=== PATIENT | male | born 1970 | race Caucasian/White ===

== ENCOUNTER 2016-10-19 19:06 | Emergency (ER) | payer OTHER, MEDICAID ==
--- NOTE | 2016-10-19 19:06 | EDPHY ---
H & P Time Seen by Provider: 10/19/16 19:06 HPI/ROS: CHIEF COMPLAINT: Alcohol intoxication, "I had a seizure." HISTORY OF PRESENT ILLNESS: This patient is an intoxicated 33 year old male well known to this facility who arrives by EMS after he was found outside of a bar diffusely trembling. He tells me that he was told he had a seizure. He states that he doesn't know when he last drank alcohol and denies alcohol use today. He admits to a history of seizures and reports that he has been compliant with his seizure medications; he takes Dilantin 300mg in the morning and 200mg in the evening. He has no complaints upon arrival. He denies any recent illness. The patient is reluctant to provide detailed history secondary to his intoxicated state. REVIEW OF SYSTEMS: Constitutional: No fever, no chills Eyes: No visual changes ENT: No sore throat Respiratory: No cough, no shortness of breath Cardiac: No chest pain Gastrointestinal: No nausea, no vomiting, no abdominal pain Genitourinary: No hematuria, no dysuria Musculoskeletal: No leg pain or swelling Skin: No rash Neurological: No headache, no numbness, no weakness Psychiatric: No depression Past Medical/Surgical History: Alcoholism Seizure disorder Social History: Heavy drinker. Smoker. Smoking Status: Heavy smoker Physical Exam: General Appearance: Alert, appears intoxicated Eyes: Pupils equal and round, no conjunctival pallor or injection ENT, Mouth: Mucous membranes moist Neck: Normal inspection Respiratory: Lungs are clear to auscultation Cardiovascular: Regular rate and rhythm Gastrointestinal: Abdomen is soft and non- tender Neurological: A&O, nonfocal, not confused Skin: Warm and dry Extremities: Nontender, no pedal edema Psychiatric: Mood and affect normal Constitutional: Initial Vital Signs Temperature (C) 37.0 C 10/19/16 19:13 Heart Rate 84 10/19/16 19:13 Respiratory Rate 20 10/19/16 19:13 Blood Pressure 110/64 10/19/16 19:13 O2 Sat (%) 96 10/19/16 19:13 O2 Delivery Mode Room Air Allergies/Adverse Reactions: ISOVUE-300 Allergy (Uncoded 10/19/16 19:13) Home Medications: Medication Instructions Recorded clonazePAM [klonoPIN (RX)] 12/25/13 Medical Decision Making ED Course/Re-evaluation: Will administer the patient's evening dose of 200mg Dilantin. Breathalyzer reveals ETOH level of 382. 8 p.m.-Able to walk with a steady gait. Will discharge to the [facility]. - Data Points Medications Given: Discontinued Medications Phenytoin (Dilantin) 200 mg PO EDNOW ONE Stop: 10/19/16 19:25 Last Admin: 10/19/16 20:06 Dose: Not Given Phenytoin (Dilantin) 200 mg PO ONCE ONE Stop: 10/19/16 20:01 Last Admin: 10/19/16 20:09 Dose: 200 mg Departure - Departure Disposition: Home, Routine, Self-Care Clinical Impression: Alcohol intoxication Qualifiers: Complication of substance-induced condition: uncomplicated Qualified Code(s): F10.120 - Alcohol abuse with intoxication, uncomplicated Condition: Good Instructions: Abuse of Alcohol (ED) Additional Instructions: 1. Please avoid abusing alcohol. If you would like to detox from alcohol, please go to the [facility] ([facility] 2. Return to the Emergency Department if you experience repeat seizures, severe headache, confusion, or others serious concerns. Referrals: Erna Pandya MD [Primary Care Provider] - As per Instructions [facility] Detox 24 Hours [Outside] - As per Instructions Report Scribed for: Monique Hooper Report Scribed by: Rekha Martin Date of Report: 10/19/16 Time of Report: 19:06 Physician Review and Approval Statement: 10/19/16 19:06 Portions of this note were transcribed by a medical scientific officer. I personally performed a history, physical exam, medical decision making, and confirmed accuracy of information the transcribed note.
[2016-10-19 19:15] VITALS: TEMP 98.6; O2SAT 96
[2016-10-19] MEDS ORDERED: PHENYTOIN 100 MG/4 ML UDL PO ONE (19:24)
[2016-10-19] MEDS ORDERED: PHENYTOIN 50 MG CHEWABLE TAB PO ONE (20:00)
[2016-10-19 20:10] VITALS: BP 100/67; PULSE 85; RESP 18
== END 2016-10-19 20:31 | disposition home or self-care (01) ==
LOC: EDUNIT#
DX: F10.120 Alcohol abuse with intoxication, uncomplicated (principal); F17.200 Nicotine dependence, unspecified, uncomplicated

== ENCOUNTER 2016-11-26 02:29 | Emergency (ER) | payer OTHER, MEDICAID ==
[2016-11-26 02:41] VITALS: TEMP 97.3
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
[2016-11-26 06:19] VITALS: BP 110/68; PULSE 86; RESP 15; O2SAT 94
== END 2016-11-26 06:27 | disposition home or self-care (01) ==
DX: F10.121 Alcohol abuse with intoxication delirium (principal); I10 Essential (primary) hypertension; F17.200 Nicotine dependence, unspecified, uncomplicated

== ENCOUNTER 2016-12-07 01:37 | Emergency (ER) | payer OTHER, MEDICAID ==
--- NOTE | 2016-12-07 01:45 | EDPHY ---
H & P HPI/ROS: CHIEF COMPLAINT: Alcohol intoxication HISTORY OF PRESENT ILLNESS: Patient is a 46-year-old alcoholic well known to our department. He was found outside of the bar tonight passed out. States that he had been sober for 6 months but fell off the [facility]. He reports a history of seizure disorder although this has been question in the previous medical records. He denies any seizure-like activity tonight. He is not currently taking antiepileptics. He denies any injury or illness. He is unable to ambulate without assistance. REVIEW OF SYSTEMS: Constitutional: denies: chills, fever, recent illness, recent injury EENTM: denies: blurred vision, double vision, nose congestion Respiratory: denies: cough, shortness of breath Cardiac: denies: chest pain, irregular heart rate, lightheadedness, palpitations Gastrointestinal/Abdominal: denies: abdominal pain, diarrhea, nausea, vomiting, blood streaked stools Genitourinary: denies: dysuria, frequency, hematuria, pain Musculoskeletal: Chronic shoulder pain Skin: denies: lesions, rash, jaundice, bruising Neurological: denies: headache, numbness, paresthesia, tingling, dizziness, weakness Hematologic/Lymphatic: denies: blood clots, easy bleeding, easy bruising Immunologic/allergic: denies: HIV/AIDS, transplant EXAM: GENERAL: Slurred speech, unstable gait HEAD: Atraumatic, normocephalic. EYES: Pupils equal round and reactive to light, extraocular movements intact, sclera anicteric, conjunctiva are normal. ENT: TMs normal, nares patent, oropharynx clear without exudates. Moist mucous membranes. NECK: Normal range of motion, supple without lymphadenopathy or JVD. LUNGS: Breath sounds clear to auscultation bilaterally and equal. No wheezes rales or rhonchi. HEART: Regular rate and rhythm without murmurs, rubs or gallops. ABDOMEN: Soft, nontender, normoactive bowel sounds. No guarding, no rebound. No masses appreciated. BACK: No CVA tenderness, no spinal tenderness, step-offs or deformities EXTREMITIES: Normal range of motion, no pitting or edema. No clubbing or cyanosis. NEUROLOGICAL: Cranial nerves II through XII grossly intact. Normal speech, normal gait. 5/5 strength, normal movement in all extremities, normal sensation PSYCH: Slurred speech, arousable, answers questions appropriately. SKIN: Warm, dry, normal turgor, no visible rashes or lesions. Source: Patient, EMS, Old records Exam Limitations: Intoxication - Personal History Tetanus Vaccine Date: <10YRS - Medical/Surgical History Hx Asthma: No Hx Chronic Respiratory Disease: No Hx Diabetes: No Hx Cardiac Disease: Yes Hx Renal Disease: No Hx Cirrhosis: No Hx Alcoholism: Yes Hx HIV/AIDS: No Hx Splenectomy or Spleen Trauma: No Other PMH: htn, ETOH, siezures, bipolar depression, eczema - Family History Significant Family History: No pertinent family hx - Social History Smoking Status: Heavy smoker Alcohol Use: Heavy Drug Use: Marijuana Constitutional: Initial Vital Signs Temperature (C) 36.3 C 12/07/16 01:37 Heart Rate 94 12/07/16 01:37 Respiratory Rate 18 12/07/16 01:37 Blood Pressure 126/86 H 12/07/16 01:37 O2 Sat (%) 97 12/07/16 01:37 O2 Delivery Mode Nasal Cannula O2 (L/minute) 1 Allergies/Adverse Reactions: ISOVUE-300 Allergy (Uncoded 11/26/16 02:41) Home Medications: Medication Instructions Recorded clonazePAM [klonoPIN (RX)] 12/25/13 Medical Decision Making ED Course/Re-evaluation: 3:00 a.m. the patient is ambulating safely. He is answering questions appropriately. Denies having any pain or injury. Transfer to the [facility]. Differential Diagnosis: Partial list of the Differential diagnosis considered include but were not limited to; intoxication, head injury, seizure and although unlikely based on the history and physical exam, I also considered withdrawal, infection, assault. I discussed these differential diagnoses and the plan with the patient as well as the usual and expected course. The patient understands that the diagnosis is provisional and that in medicine we are not always correct and that further workup is often warranted. Usual and customary warnings were given. All of the patient's questions were answered. The patient was instructed to return to the emergency department should the symptoms at all worsen or return, otherwise to followup with the physician as we discussed. - Data Points Medications Given: Discontinued Medications Chlordiazepoxide (Librium 25 Mg Prepack#6) 1 btl TAKEHOME EDNOW ONE Stop: 12/07/16 03:07 Last Admin: 12/07/16 03:09 Dose: 1 btl Departure - Departure Disposition: Home, Routine, Self-Care Clinical Impression: Alcohol intoxication Qualifiers: Complication of substance-induced condition: with unspecified complication Qualified Code(s): F10.129 - Alcohol abuse with intoxication, unspecified Condition: Fair Instructions: Chlordiazepoxide/Clidinium (By mouth), Alcohol Intoxication (ED) Referrals: NONE *PRIMARY CARE P,. [Unknown] - As per Instructions Arjun Kauffman DO [Doctor of Osteopathy] - As per Instructions
[2016-12-07 01:52] VITALS: BP 126/86; PULSE 94; RESP 18; TEMP 97.3; O2SAT 97
[2016-12-07] MEDS ORDERED: CHLORDIAZEPOXIDE 25MG PREPK#6 BTL TAKEHOME ONE (03:06)
== END 2016-12-07 03:27 | disposition home or self-care (01) ==
LOC: EDUNIT#
DX: F10.129 Alcohol abuse with intoxication, unspecified (principal); I10 Essential (primary) hypertension; F17.200 Nicotine dependence, unspecified, uncomplicated

== ENCOUNTER 2017-01-03 20:50 | Emergency (ER) | payer OTHER, MEDICAID ==
[2017-01-03 21:01] VITALS: RESP 18; TEMP 97.9
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
[2017-01-03] MEDS ORDERED: CHLORDIAZEPOXIDE 25MG PREPK#6 BTL TAKEHOME ONE ×2 (21:40→21:42)
[2017-01-03 22:13] VITALS: BP 104/53; PULSE 82; O2SAT 93
== END 2017-01-03 22:13 | disposition home or self-care (01) ==
DX: F10.120 Alcohol abuse with intoxication, uncomplicated (principal); I10 Essential (primary) hypertension; F17.200 Nicotine dependence, unspecified, uncomplicated

== ENCOUNTER 2017-03-19 09:35 | Emergency (ER) | payer OTHER, MEDICAID ==
--- NOTE | 2017-03-19 09:42 | EDPHY ---
H & P Time Seen by Provider: 03/19/17 09:35 HPI/ROS: CHIEF COMPLAINT: Can't walk HISTORY OF PRESENT ILLNESS: Patient admits to significant alcohol consumption, drinks "40's" denies any medical complaints or trauma. He just says he was drinking alcohol and sleeping it off but does not have injury or other complaints. Not suicidal. REVIEW OF SYSTEMS: Eye: no change in vision ENT: no sore throat Cardiac: no chest pain or syncope Pulmonary: no cough or SOB Abdomen: no vomiting, diarrhea, abdominal pain Musculoskeletal: no back pain Skin: Eczema rash especially on the right lower leg Neuro: no headache Constitutional: no fever : no urinary symptoms A comprehensive 10 point review of systems is otherwise negative aside from elements mentioned in the history of present illness. PAST MEDICAL HISTORY: Alcoholism, oral and testicular surgery Social history: Recent alcohol General Appearance: Sleepy but opens eyes to voice and does respond to questions. Eyes: No scleral icterus. ENT, Mouth: Normal mucous membranes. No tongue laceration or abrasion. Respiratory: Normal respiratory effort, breath sounds equal, lungs are clear to auscultation. Cardiovascular: Regular rate and rhythm. Gastrointestinal: Abdomen is soft and non tender. Neurological: Alert and oriented x3. Slow to respond and slurred speech. Face symmetric, normal movement and sensation in all extremities. Skin: Eczema on the right anterior bravo otherwise no rashes. Musculoskeletal: No peripheral edema and no joint swelling. Psychiatric: Not agitated. Emergency Department course/MDM: Patient presents with clinical alcohol intoxication, presentation consistent with history. Pre-hospital glucose 106. Plan for serial observation and discharge to detox when clinically sober. 1120: Alert, ambulatory, not ataxic, no medical complaints. Stable for discharge to detox. Smoking Status: Heavy smoker Constitutional: Initial Vital Signs Temperature (C) 36.4 C 03/19/17 09:47 Heart Rate 68 03/19/17 09:47 Respiratory Rate 16 03/19/17 09:47 Blood Pressure 89/54 L 03/19/17 09:47 O2 Sat (%) 97 03/19/17 09:47 O2 Delivery Mode Room Air Allergies/Adverse Reactions: ISOVUE-300 Allergy (Uncoded 11/26/16 02:41) Home Medications: Medication Instructions Recorded Dilantin 03/19/17 Medical Decision Making Differential Diagnosis: Differential for weakness considered including but not limited to alcohol intoxication, hypoglycemia or other metabolic, stroke or seizure. Departure - Departure Disposition: Home, Routine, Self-Care Clinical Impression: Alcohol intoxication Qualifiers: Complication of substance-induced condition: uncomplicated Qualified Code(s): F10.920 - Alcohol use, unspecified with intoxication, uncomplicated Condition: Good Instructions: Alcohol Intoxication (ED) Referrals: [facility],. [Clinic] - As per Instructions
[2017-03-19 09:49] VITALS: RESP 16
[2017-03-19 11:22] VITALS: BP 118/75; PULSE 78; TEMP 98.1; O2SAT 94
== END 2017-03-19 11:36 | disposition home or self-care (01) ==
LOC: EDUNIT#
DX: F10.920 Alcohol use, unspecified with intoxication, uncomplicated (principal); F17.200 Nicotine dependence, unspecified, uncomplicated

== ENCOUNTER 2017-05-10 22:46 | Emergency (ER) | payer OTHER, MEDICAID ==
[2017-05-10] MEDS ORDERED: NS 1,000 ML IV ONE (22:47)
--- NOTE | 2017-05-10 22:49 | EDPHY ---
H & P HPI/ROS: HPI CHIEF COMPLAINT: Alcohol intoxication, insulin-dependent diabetes, possible seizure HISTORY OF PRESENT ILLNESS: This patient 47-year-old male who presents emergency room by EMS he has been drinking alcohol this evening. He went to a gas station the gas station called 911. The patient asked them to call 911. He states that he is an insulin-dependent diabetic and has not had anything to eat. He is unsure if he was going to have a seizure or his sugar was low. Additionally he drank TWO 40's this evening. He presents emergency room slurring his speech and appears to be intoxicated. He is asking to eat something. Past Medical History: Seizure disorder, insulin-dependent diabetes Past Surgical History: No recent surgery Social History: Homeless, daily alcohol use Family History: Noncontributory ROS REVIEW OF SYSTEMS: A comprehensive 10 point review of systems is otherwise negative aside from elements mentioned in the history of present illness. Exam Constitutional smells of alcohol, alert and oriented, no acute distress, triage nursing summary reviewed, vital signs reviewed, awake/alert. Eyes normal conjunctivae and sclera, EOMI, PERRLA. HENT normal inspection, atraumatic, moist mucus membranes, no epistaxis, neck supple/ no meningismus, no raccoon eyes. Respiratory clear to auscultation bilaterally, normal breath sounds, no respiratory distress, no wheezing. Cardiovascular rate normal, regular rhythm, no murmur, no edema, distal pulses normal. Gastrointestinal soft, non-tender, no rebound, no guarding, normal bowel sounds, no distension, no pulsatile mass. Genitourinary no CVA tenderness. Musculoskeletal no midline vertebral tenderness, full range of motion, no calf swelling, no tenderness of extremities, no meningismus, good pulses, neurovascularly intact. Skin pink, warm, & dry, no rash, skin atraumatic. Neurologic normal neurological exam, awake, alert and oriented x 3, AAOx3, moves all 4 extremities equally, motor intact, sensory intact, CN II-XII intact , normal cerebellar, normal vision, slight slurring to speak Psychiatric normal mood/affect. Heme/Lymph/Immune no lymphadenopathy. Differential Diagnosis: Includes but is not limited to in a particular order acute alcohol intoxication, electrolyte disturbance, dehydration, seizure disorder, seizure, postictal state Medical Decision Making: Plan for this patient IV establishment IV fluid bolus , check Dilantin level, alcohol level, CT scan head without contrast Re-evaluation: CT scan of the head without IV contrast The results of the study are negative for acute abnormality no bleed. The study was read by Dr. Conrad I viewed the images myself on the PACS system. 0532AM: Patient ambulatory throughout the emergency room no ataxia. Clinically sober. Ready for discharge. He is calm and cooperative. No evidence seizure IV here. Blood work is reassuring. Alcohol is 395 when he arrived. Source: Patient, EMS - Personal History Tetanus Vaccine Date: <10YRS - Medical/Surgical History Hx Asthma: No Hx Chronic Respiratory Disease: No Hx Diabetes: No Hx Cardiac Disease: No Hx Renal Disease: No Hx Cirrhosis: No Hx Alcoholism: Yes Hx HIV/AIDS: No Hx Splenectomy or Spleen Trauma: No Other PMH: HTN, ETOH, seizures, bipolar depression, eczema - Social History Smoking Status: Heavy smoker Constitutional: Initial Vital Signs Temperature (C) 36.7 C 05/10/17 23:07 Heart Rate 76 05/10/17 23:07 Respiratory Rate 18 05/10/17 23:07 Blood Pressure 118/79 05/10/17 23:07 O2 Sat (%) 95 05/10/17 23:07 O2 Delivery Mode Room Air Allergies/Adverse Reactions: ISOVUE-300 Allergy (Uncoded 11/26/16 02:41) Home Medications: Medication Instructions Recorded Dilantin 03/19/17 Medical Decision Making - Diagnostics Imaging Results: Imaging Impressions Head CT 05/10/17 22:55 Impression: 1. Mild generalized atrophy without definite seizure focus identified. 2. Negative for hemorrhage. 3. See above report for additional findings. Results called and discussed with Jose Ahmadi MD on 05/11/2017 at 0:36 - Data Points Laboratory Results: Laboratory Results 05/10/17 22:50 05/10/17 22:50 05/10/17 05/10/17 22:50 22:50 WBC 6.49 10^3/uL 10^3/uL (3.80-9.50) RBC 4.13 10^6/uL L 10^6/uL (4.40-6.38) Hgb 14.4 g/dL g/dL (13.7-17.5) Hct 42.7 % % (40.0-51.0) MCV 103.4 fL H fL (81.5-99.8) MCH 34.9 pg H pg (27.9-34.1) MCHC 33.7 g/dL g/dL (32.4-36.7) RDW 11.9 % % (11.5-15.2) Plt Count 179 10^3/uL 10^3/uL (150-400) MPV 8.7 fL fL (8.7-11.7) Neut % (Auto) 42.0 % % (39.3-74.2) Lymph % (Auto) 38.5 % % (15.0-45.0) [place] % (Auto) 12.6 % % (4.5-13.0) Eos % (Auto) 4.6 % % (0.6-7.6) Baso % (Auto) 1.8 % H % (0.3-1.7) Nucleat RBC Rel Count 0.0 % % (0.0-0.2) Absolute Neuts (auto) 2.72 10^3/uL 10^3/uL (1.70-6.50) Absolute Lymphs (auto) 2.50 10^3/uL 10^3/uL (1.00-3.00) Absolute Monos (auto) 0.82 10^3/uL H 10^3/uL (0.30-0.80) Absolute Eos (auto) 0.30 10^3/uL 10^3/uL (0.03-0.40) Absolute Basos (auto) 0.12 10^3/uL H 10^3/uL (0.02-0.10) Absolute Nucleated RBC 0.00 10^3/uL 10^3/uL (0-0.01) Immature Gran % 0.5 % % (0.0-1.1) Immature Gran # 0.03 10^3/uL 10^3/uL (0.00-0.10) Sodium 145 mEq/L H mEq/L (134-144) Potassium 4.1 mEq/L mEq/L (3.5-5.2) Chloride 103 mEq/L mEq/L (97-110) Carbon Dioxide 28 mEq/l mEq/l (22-31) Anion Gap 14 mEq/L mEq/L (8-16) BUN 5 mg/dL L mg/dL (7-23) Creatinine 0.7 mg/dL mg/dL (0.7-1.3) Estimated GFR > 60 Glucose 89 mg/dL mg/dL (70-100) Calcium 9.4 mg/dL mg/dL (8.5-10.4) Phenytoin < 3.0 mcg/mL L mcg/mL (10.0-20.0) Ethyl Alcohol 395 mg/dL H mg/dL (0-10) Medications Given: Discontinued Medications Sodium Chloride (Ns) 1,000 mls @ 0 mls/hr IV ONCE ONE; Wide Open PRN Reason: Protocol Stop: 05/10/17 22:48 Last Admin: 05/10/17 23:03 Dose: 1,000 mls Departure - Departure Disposition: Home, Routine, Self-Care Clinical Impression: Alcohol intoxication Qualifiers: Complication of substance-induced condition: uncomplicated Qualified Code(s): F10.920 - Alcohol use, unspecified with intoxication, uncomplicated Condition: Good Instructions: Alcohol Intoxication (ED), Abuse of Alcohol (ED) Referrals: NONE *PRIMARY CARE P,. [Primary Care Provider] - As per Instructions
[2017-05-10 23:05] LABS: % IMMATURE GRANULYOCYTES 0.5 % (0.0-1.1); ABSOLUTE IMMATURE GRANULOCYTES 0.03 10^3/uL (0.00-0.10); ADD DIFF? NO; ADD MORPH? NO; ADD SCAN? NO; ATYPICAL LYMPHOCYTE FLAG 30 (0-99); FRAGMENT RBC FLAG 0 (0-99); HEMATOCRIT 42.7 % (40.0-51.0); HEMOGLOBIN 14.4 g/dL (13.7-17.5); LEFT SHIFT FLG 0 (0-99); LIPEMIA HEMOLYSIS FLAG 80 (0-99); MEAN CELL HEMOGLOBIN 34.9 pg (27.9-34.1); MEAN CELL HEMOGLOBIN CONCENTR. 33.7 g/dL (32.4-36.7); MEAN CELL VOLUME 103.4 fL (81.5-99.8); MEAN PLATELET VOLUME 8.7 fL (8.7-11.7); PLATELET CLUMPS FLAG 0 (0-99); PLATELET COUNT 179 10^3/uL (150-400); RED BLOOD CELL COUNT 4.13 10^6/uL (4.40-6.38); RED CELL DISTRIBUTION WIDTH 11.9 % (11.5-15.2)
[2017-05-10 23:16] VITALS: TEMP 98.1
[2017-05-10 23:21] LABS: ANION GAP 14 mEq/L (8-16); CALCIUM 9.4 mg/dL (8.5-10.4); CARBON DIOXIDE 28 mEq/l (22-31); CHLORIDE 103 mEq/L (97-110); CREATININE 0.7 mg/dL (0.7-1.3); GLOMERULAR FILTRATION RATE > 60; GLUCOSE 89 mg/dL (70-100); POTASSIUM 4.1 mEq/L (3.5-5.2); SODIUM 145 mEq/L (134-144)
[2017-05-10 23:25] LABS: ETHANOL SERUM 395 mg/dL (0-10)
[2017-05-11 05:45] VITALS: BP 121/65; PULSE 77; RESP 16; O2SAT 97
== END 2017-05-11 05:47 | disposition home or self-care (01) ==
LOC: EDUNIT#
DX: F10.920 Alcohol use, unspecified with intoxication, uncomplicated (principal); E11.9 Type 2 diabetes mellitus without complications; I10 Essential (primary) hypertension; F17.200 Nicotine dependence, unspecified, uncomplicated; E86.9 Volume depletion, unspecified
CPT/HCPCS: G0480

== ENCOUNTER 2017-07-25 02:50 | Emergency (ER) | payer OTHER, MEDICAID ==
--- NOTE | 2017-07-25 02:59 | EDPHY ---
H & P HPI/ROS: HPI CHIEF COMPLAINT: Alcohol Intoxication HISTORY OF PRESENT ILLNESS: Patient is a 47-year-old male, presents emergency room by EMS after he may contact with them at the local [facility]. The patient is homeless and is an alcoholic. Hurts me that he drank multiple 40s this evening. He may contact with EMS at the restaurant highly intoxicated with alcohol. Please additionally make contact with him and wanted to bring him to the [facility], however they could not clear him to go there so they brought him here for evaluation 1st. The patient has no focal complaints. Denies any pain anywhere. Does smell of alcohol and has horizontal beating nystagmus consistent with acute alcohol intoxication. Patient's breath alcohol 275 upon arrival. Additionally reports to me that he did cocaine this evening. Otherwise no focal complaints. Past Medical History: Alcoholism, polysubstance abuse, seizure disorder, diabetes Past Surgical History: Denies recent surgery Social History: Homeless, daily alcohol use, cocaine this evening. Family History: Noncontributory. ROS REVIEW OF SYSTEMS: A comprehensive 10 point review of systems is otherwise negative aside from elements mentioned in the history of present illness. Exam Constitutional Intoxicated, triage nursing summary reviewed, vital signs reviewed, Sleepy, smells of alcohol Eyes normal conjunctivae and sclera, horizontal beating nystagmus consistent acute alcohol intoxication, otherwise pupils equal and react to light HENT normal inspection, atraumatic, moist mucus membranes, no epistaxis, neck supple/ no meningismus, no raccoon eyes. Respiratory clear to auscultation bilaterally, normal breath sounds, no respiratory distress, no wheezing. Cardiovascular rate normal, regular rhythm, no murmur, no edema, distal pulses normal. Gastrointestinal soft, non-tender, no rebound, no guarding, normal bowel sounds, no distension, no pulsatile mass. Genitourinary no CVA tenderness. Musculoskeletal no midline vertebral tenderness, full range of motion, no calf swelling, no tenderness of extremities, no meningismus, good pulses, neurovascularly intact. Skin pink, warm, & dry, no rash, skin atraumatic. Neurologic sleepy, intoxicated with alcohol,, alert and oriented x 3, AAOx3, moves all 4 extremities equally, motor intact, sensory intact, CN II-XII intact , , normal vision, normal speech. Psychiatric normal mood/affect. Heme/Lymph/Immune no lymphadenopathy. Differential Diagnosis: Includes but is not limited to in a particular order acute alcohol intoxication, alcohol abuse, dehydration, electrolyte abnormality , nausea vomiting from acute alcohol intoxication Medical Decision Making: Plan for this patient breath alcohol. Monitor for sobriety. When patient is stable not ambulate well he can be discharged to the [facility]. Re-evaluation: 0535: Re-examination at this time. Patient resting comfortably. Clinically sober. Ambulatory with a stable gait. No ataxia. Safe for discharge. He has no complaints. Answered all his questions. Source: Patient, EMS - Personal History Tetanus Vaccine Date: <10YRS - Medical/Surgical History Hx Asthma: No Hx Chronic Respiratory Disease: No Hx Diabetes: No Hx Cardiac Disease: No Hx Renal Disease: No Hx Cirrhosis: No Hx Alcoholism: Yes Hx HIV/AIDS: No Hx Splenectomy or Spleen Trauma: No Other PMH: HTN, ETOH, seizures, bipolar depression, eczema - Social History Smoking Status: Heavy smoker Constitutional: Initial Vital Signs Temperature (C) 36.6 C 07/25/17 03:00 Heart Rate 76 07/25/17 03:00 Respiratory Rate 18 07/25/17 03:00 Blood Pressure 105/75 07/25/17 03:00 O2 Sat (%) 95 07/25/17 03:00 O2 Delivery Mode Room Air O2 (L/minute) 2 Allergies/Adverse Reactions: ISOVUE-300 Allergy (Uncoded 11/26/16 02:41) Home Medications: Medication Instructions Recorded Romi 03/19/17 Departure - Departure Disposition: Home, Routine, Self-Care Clinical Impression: Alcohol intoxication Qualifiers: Complication of substance-induced condition: uncomplicated Qualified Code(s): F10.920 - Alcohol use, unspecified with intoxication, uncomplicated Condition: Good Instructions: Alcohol Intoxication (ED), Abuse of Alcohol (ED) Referrals: NONE *PRIMARY CARE P,. [Primary Care Provider] - As per Instructions
[2017-07-25 06:28] VITALS: BP 143/77; PULSE 74; RESP 16; TEMP 97.9; O2SAT 96
== END 2017-07-25 06:27 | disposition home or self-care (01) ==
LOC: EDUNIT#
DX: F10.920 Alcohol use, unspecified with intoxication, uncomplicated (principal); E11.9 Type 2 diabetes mellitus without complications; I10 Essential (primary) hypertension; F17.200 Nicotine dependence, unspecified, uncomplicated

== ENCOUNTER 2017-08-04 02:21 | Emergency (ER) | payer OTHER, MEDICAID ==
[2017-08-04 02:26] VITALS: TEMP 98.2
--- NOTE | 2017-08-04 03:12 | EDPHY ---
H & P Stated Complaint: ETOH withdrawals Time Seen by Provider: 08/04/17 02:34 HPI/ROS: HPI The patient presents with signs of alcohol withdrawal, [facility]. His last drink was at 2:00 p.m. and he began having withdrawal symptoms at about 8:00 p.m. he says. He has had these before. He feels generally achy and tremulous. He feels slightly anxious, he denies any hallucinations, seizures, vomiting. He also is complaining of rash of his feet and groin region which has been present for several weeks now. He says that because of his homelessness, he is not able to find a bathroom and often times has to defecate in his pants and this is made the rash worse. He says it is somewhat itchy and also painful.. REVIEW OF SYSTEMS Constitutional: No fever, no chills. Eyes: No discharge. ENT: No sore throat. Cardiovascular: No chest pain, no palpitations. Respiratory: No cough, no shortness of breath. Gastrointestinal: No abdominal pain, no vomiting. Genitourinary: No hematuria. Musculoskeletal: No back pain. Skin: Positive for rashes. Neurological: No headache. PMHx: Rash described as eczema previously Soc Hx: Homeless, alcohol abuse PHYSICAL General Appearance: Alert, no distress Eyes: Pupils equal and round no pallor or injection ENT, Mouth: Mucous membranes moist Respiratory: There are no retractions, lungs are clear to auscultation Cardiovascular: Regular rate and rhythm Gastrointestinal: Abdomen is soft and non-tender, no masses, bowel sounds normal Neurological: A&O, moves all extremities, slightly tremulous Skin: Warm and dry, groin region from scrotum to buttocks is diffusely erythematous with areas of excoriation, there is no tenderness, drainage or fluctuance, lower extremities with scaling erythematous rash in web spaces and on dorsum of feet Musculoskeletal: Neck is supple non tender Extremities: symmetrical, full range of motion Psychiatric: Patient is oriented X 3, there is no agitation Source: Patient Exam Limitations: No limitations - Personal History Current Tetanus/Diphtheria Vaccine: Yes Tetanus Vaccine Date: <10YRS - Medical/Surgical History Hx Asthma: No Hx Chronic Respiratory Disease: No Hx Diabetes: No Hx Cardiac Disease: No Hx Renal Disease: No Hx Cirrhosis: No Hx Alcoholism: Yes Hx HIV/AIDS: No Hx Splenectomy or Spleen Trauma: No Other PMH: HTN, ETOH, seizures, bipolar depression, eczema - Social History Smoking Status: Heavy smoker Constitutional: Initial Vital Signs Temperature (C) 36.8 C 08/04/17 02:22 Heart Rate 88 08/04/17 02:22 Respiratory Rate 18 08/04/17 02:22 Blood Pressure 148/76 H 08/04/17 02:22 O2 Sat (%) 92 08/04/17 02:22 O2 Delivery Mode Room Air Allergies/Adverse Reactions: contrast dye Allergy (Uncoded 08/04/17 02:27) ISOVUE-300 Allergy (Uncoded 08/04/17 02:26) Home Medications: Medication Instructions Recorded Dilantin 03/19/17 Clotrimazole 1% [Lotrimin 1%] 30 gm TP BID #1 cream 08/04/17 Triamcinolone 0.025% 1 nura TP BID #1 crtube 08/04/17 [Triamcinolone 0.025% cream (*)] Vits A and D/White Pet/Lanolin [A 113 gm TP BID #1 oint...g. 08/04/17 and D Ointment] Medical Decision Making Differential Diagnosis: 47-year-old male with longstanding history of alcohol abuse presents with symptoms of alcohol withdrawal from the [facility]. He does have tremulousness and is slightly tachycardic and feels anxious. Because of this I will give him a dose of Librium here and send him out with a Librium prescription. In regards to his rash this peers to be fungal in nature in both his groin region and on his feet. There is no sign of Fernanda's gangrene. This is likely worsened by his poor hygiene. I will prescribe him antifungals and barrier cream. He will be discharged to the [facility]. - Data Points Medications Given: Discontinued Medications Chlordiazepoxide (Librium 25 Mg Prepack#6) 1 btl TAKEHOME EDNOW ONE Stop: 08/04/17 03:40 Last Admin: 08/04/17 04:07 Dose: 1 btl Chlordiazepoxide HCl (Librium) 50 mg PO EDNOW ONE Stop: 08/04/17 03:40 Last Admin: 08/04/17 04:07 Dose: 50 mg Departure - Departure Disposition: Home, Routine, Self-Care Clinical Impression: Tinea cruris Alcohol withdrawal Qualifiers: Complication of substance-induced condition: uncomplicated Qualified Code(s): F10.230 - Alcohol dependence with withdrawal, uncomplicated Tinea pedis Qualifiers: Laterality: bilateral Qualified Code(s): B35.3 - Tinea pedis Condition: Good Instructions: Athlete's Foot (ED), Jock Itch (ED), Alcohol Withdrawal (ED) Additional Instructions: Please return to the emergency department if your worse in any way. Referrals: [facility],. [Clinic] - As per Instructions Prescriptions: Clotrimazole 1% [Lotrimin 1%] 30 gm TP BID #1 cream Triamcinolone 0.025% [Triamcinolone 0.025% cream (*)] 1 nura TP BID #1 crtube Vits A and D/White Pet/Lanolin [A and D Ointment] 113 gm TP BID #1 oint...g.
[2017-08-04] MEDS ORDERED: chlordiazePOXIDE 25 MG CAP PO ONE (03:39)
[2017-08-04] MEDS ORDERED: CHLORDIAZEPOXIDE 25MG PREPK#6 BTL TAKEHOME ONE (03:39)
[2017-08-04 04:14] VITALS: BP 152/82; PULSE 82; RESP 17; O2SAT 94
== END 2017-08-04 04:20 | disposition home or self-care (01) ==
LOC: EDUNIT#
DX: B35.6 Tinea cruris (principal); F10.230 Alcohol dependence with withdrawal, uncomplicated; B35.3 Tinea pedis; I10 Essential (primary) hypertension; F17.200 Nicotine dependence, unspecified, uncomplicated

== ENCOUNTER 2017-09-25 15:00 | Emergency (ER) | payer OTHER, MEDICAID ==
[2017-09-25] MEDS ORDERED: NS 1,000 ML IV ONE ×2 (15:03→16:43)
--- NOTE | 2017-09-25 15:10 | EDPHY ---
H & P HPI/ROS: HPI CHIEF COMPLAINT: Possible seizure activity versus alcohol intoxication HISTORY OF PRESENT ILLNESS: This patient 47-year-old male homeless presents emergency room by EMS for possible seizure activity. He was found on the sidewalk lying on the ground. EMS reports that he had 2 seizures. They describe it as him staring off into space his eyes rolling back in his head and then becomes postictal. They did not describe any generalized tonic-clonic movement. No bowel bladder incontinence. Patient admits to EMS the had a large amount of alcohol today. Due to these events they did give him 5 mg IM Versed prior to arrival. He now arrives to the emergency room very lethargic unable to participate in exam unable to give a history. History review systems comes from EMS. His blood sugar was reported normal by EMS. No reported trauma. Patient at this time is sleepy. Smells of alcohol. Past Medical History: Homelessness, daily alcohol use with history of alcoholism, polysubstance abuse and seizure disorder Past Surgical History: No recent Social History: Homeless, daily alcohol use polysubstance abuse. Family History: Noncontributory ROS REVIEW OF SYSTEMS: A comprehensive 10 point review of systems is otherwise negative aside from elements mentioned in the history of present illness. Exam Constitutional smells of alcohol, lethargic triage nursing summary reviewed, vital signs reviewed, awake/alert. Eyes normal conjunctivae and sclera, EOMI, PERRLA. HENT normal inspection, atraumatic, moist mucus membranes, no epistaxis, neck supple/ no meningismus, no raccoon eyes. Respiratory clear to auscultation bilaterally, normal breath sounds, no respiratory distress, no wheezing. Cardiovascular rate normal, regular rhythm, no murmur, no edema, distal pulses normal. Gastrointestinal soft, non-tender, no rebound, no guarding, normal bowel sounds, no distension, no pulsatile mass. Genitourinary no CVA tenderness. Musculoskeletal no midline vertebral tenderness, full range of motion, no calf swelling, no tenderness of extremities, no meningismus, good pulses, neurovascularly intact. Skin pink, warm, & dry, no rash, skin atraumatic. Neurologic lethargic, smells of alcohol, sleepy. Psychiatric normal mood/affect. Heme/Lymph/Immune no lymphadenopathy. Differential Diagnosis: Includes but is not limited to in a particular order seizure, acute alcohol intoxication, electrolyte meds, infection, intracranial bleed Medical Decision Making: Plan for this patient CT head without contrast, check basic blood work, full machinery engineer, EKG and close monitoring check alcohol level re-evaluate. Re-evaluation: EKG interpretation by me on record in [facility] system. Impression time of EKG 15 14, sinus rhythm rate of 72. No acute ischemic changes. Unremarkable EKG. Serum alcohol [address] head without contrast negative for acute bleed. 1748: Patient up ambulating without any difficulty. He still intoxicated with alcohol. He is on a detain her for acute alcohol intoxication. CT scan head reviewed negative. Blood work reassuring Patient offered to go to the [facility] but is decline. Will continue to observe until clinically sober and safe for discharge. Serum alcohol level 377 upon arrival. He is now much more sober but still somewhat intoxicated. He has had no seizure activity here in emergency room. Patient agreeable going to the [facility]. Librium take-home will be provided. Source: Patient, EMS Exam Limitations: Clinical condition, Intoxication - Personal History Tetanus Vaccine Date: <10YRS - Medical/Surgical History Hx Asthma: No Hx Chronic Respiratory Disease: No Hx Diabetes: No Hx Cardiac Disease: No Hx Renal Disease: No Hx Cirrhosis: No Hx Alcoholism: Yes Hx HIV/AIDS: No Hx Splenectomy or Spleen Trauma: No Other PMH: HTN, ETOH, seizures, bipolar depression, eczema - Social History Smoking Status: Heavy smoker Constitutional: Initial Vital Signs Temperature (C) 36.9 C 09/25/17 15:00 Heart Rate 80 09/25/17 15:00 Blood Pressure 103/70 09/25/17 15:00 O2 Sat (%) 90 L 09/25/17 15:00 O2 Delivery Mode Nasal Cannula O2 (L/minute) 2 Allergies/Adverse Reactions: contrast dye Allergy (Uncoded 08/04/17 02:27) ISOVUE-300 Allergy (Uncoded 08/04/17 02:26) Home Medications: Medication Instructions Recorded Dilantin 03/19/17 Clotrimazole 1% [Lotrimin 1%] 30 gm TP BID #1 cream 08/04/17 Triamcinolone 0.025% 1 nura TP BID #1 crtube 08/04/17 [Triamcinolone 0.025% cream (*)] Vits A and D/White Pet/Lanolin [A 113 gm TP BID #1 oint...g. 08/04/17 and D Ointment] Medical Decision Making - Diagnostics Imaging Results: Imaging Impressions Head CT 09/25/17 15:03 Impression: 1. Mild cerebral atrophy. 2. No definite hemorrhage or mass effect. 3. Moderate left maxillary sinusitis. Findings and recommendations discussed with Emergency Department physician, Jose Ahmadi MD at 1616 hour, 09/25/2017. Final report concurs with initial preliminary interpretation. - Data Points Laboratory Results: Laboratory Results 09/25/17 15:03 09/25/17 15:03 09/25/17 09/25/17 15:03 15:03 WBC 3.17 10^3/uL L 10^3/uL (3.80-9.50) RBC 4.30 10^6/uL L 10^6/uL (4.40-6.38) Hgb 14.6 g/dL g/dL (13.7-17.5) Hct 43.8 % % (40.0-51.0) MCV 101.9 fL H fL (81.5-99.8) MCH 34.0 pg pg (27.9-34.1) MCHC 33.3 g/dL g/dL (32.4-36.7) RDW 12.5 % % (11.5-15.2) Plt Count 133 10^3/uL L 10^3/uL (150-400) MPV 8.7 fL fL (8.7-11.7) Neut % (Auto) 37.1 % L % (39.3-74.2) Lymph % (Auto) 39.7 % % (15.0-45.0) [place] % (Auto) 15.1 % H % (4.5-13.0) Eos % (Auto) 6.9 % % (0.6-7.6) Baso % (Auto) 0.9 % % (0.3-1.7) Nucleat RBC Rel Count 0.0 % % (0.0-0.2) Absolute Neuts (auto) 1.17 10^3/uL L 10^3/uL (1.70-6.50) Absolute Lymphs (auto) 1.26 10^3/uL 10^3/uL (1.00-3.00) Absolute Monos (auto) 0.48 10^3/uL 10^3/uL (0.30-0.80) Absolute Eos (auto) 0.22 10^3/uL 10^3/uL (0.03-0.40) Absolute Basos (auto) 0.03 10^3/uL 10^3/uL (0.02-0.10) Absolute Nucleated RBC 0.00 10^3/uL 10^3/uL (0-0.01) Immature Gran % 0.3 % % (0.0-1.1) Immature Gran # 0.01 10^3/uL 10^3/uL (0.00-0.10) Sodium 143 mEq/L mEq/L (135-145) Potassium 4.1 mEq/L mEq/L (3.5-5.2) Chloride 105 mEq/L mEq/L (97-110) Carbon Dioxide 20 mEq/l L mEq/l (22-31) Anion Gap 18 mEq/L H mEq/L (8-16) BUN 4 mg/dL L mg/dL (7-23) Creatinine 0.7 mg/dL mg/dL (0.7-1.3) Estimated GFR > 60 Glucose 89 mg/dL mg/dL (70-100) Calcium 9.0 mg/dL mg/dL (8.5-10.4) Ethyl Alcohol 377 mg/dL H mg/dL (0-10) Medications Given: Discontinued Medications Sodium Chloride (Ns) 1,000 mls @ 0 mls/hr IV EDNOW ONE; Wide Open PRN Reason: Protocol Stop: 09/25/17 15:04 Last Admin: 09/25/17 15:16 Dose: 1,000 mls Sodium Chloride (Ns) 1,000 mls @ 0 mls/hr IV ONCE ONE PRN Reason: Wide Open Stop: 09/25/17 16:44 Last Admin: 09/25/17 16:44 Dose: 1,000 mls Departure - Departure Disposition: Home, Routine, Self-Care Clinical Impression: Alcohol intoxication Qualifiers: Complication of substance-induced condition: uncomplicated Qualified Code(s): F10.920 - Alcohol use, unspecified with intoxication, uncomplicated Condition: Good Instructions: Alcohol Intoxication (ED), Abuse of Alcohol (ED) Referrals: Patient,NotPresent [Unknown] - As per Instructions
--- NOTE | 2017-09-25 15:15 | CPEKG ---
Heart Rate: 72 RR Interval: 833 P-R Interval: 156 QRSD Interval: 90 QT Interval: 392 QTC Interval: 430 P [place]: 60 QRS [place]: 20 T Wave [place]: 19 EKG Severity - NORMAL ECG - EKG Impression: SINUS RHYTHM Electronically Signed By: Jose Ahmadi 25-Sep-2017 20:06:33
[2017-09-25 15:34] LABS: PLATELET COUNT 133 10^3/uL (150-400)
[2017-09-25 18:57] VITALS: RESP 16
[2017-09-25] MEDS ORDERED: CHLORDIAZEPOXIDE 25MG PREPK#6 BTL TAKEHOME ONE (19:52)
[2017-09-25 20:14] VITALS: BP 109/72; PULSE 88; TEMP 97.9; O2SAT 93
== END 2017-09-25 20:18 | disposition home or self-care (01) ==
LOC: EDUNIT#
DX: F10.920 Alcohol use, unspecified with intoxication, uncomplicated (principal); I10 Essential (primary) hypertension; F17.200 Nicotine dependence, unspecified, uncomplicated; E86.9 Volume depletion, unspecified
CPT/HCPCS: G0480

== ENCOUNTER 2017-11-13 15:59 | Emergency (ER) | payer OTHER, MEDICAID ==
--- NOTE | 2017-11-13 16:07 | EDPHY ---
H & P Time Seen by Provider: 11/13/17 16:00 HPI/ROS: Chief complaint. Altered mental status HPI. 47-year-old male here by EMS with intoxication. Apparently he injected unknown substance earlier today. He has been drinking alcohol. He admits to cocaine use. He was found unresponsive at the [facility] and EMS was called. Patient has no complaints and admits to drinking and doing drugs today. ROS Constitutional. no fever/chills, no weakness Eyes. no problems with vision ENT. no sore throat, no nasal drainage Cardiovascular. no chest pain Respiratory. no shortness of breath, no cough Abdominal. no abdominal pain, no nausea/vomiting, no diarrhea . no problems urinating MS. no calf pain/swelling, no neck/back pain, no joint pain Skin. no rash Lymph. no swollen glands Neuro. Can't walk secondary to intoxication Past Medical/Surgical History: Hypertension, alcoholism, seizure disorder, bipolar illness, depression, eczema Social History: Single, daily smoker, recent alcohol Smoking Status: Heavy smoker Physical Exam: General Appearance: Arousable well-developed male slurred speech vital signs stable Eyes: Pupils equal and round no pallor or injection. ENT, Mouth: Mucous membranes are moist. Respiratory: There are no retractions, lungs are clear to auscultation. Cardiovascular: Regular rate and rhythm. Gastrointestinal: Abdomen is soft and nontender, no masses, bowel sounds normal. Neurological: Awake and alert, sensory and motor exams grossly normal. Skin: Warm and dry, no rashes. Musculoskeletal: Neck is supple nontender. Extremities symmetrical, full range of motion. Psychiatric: Patient gradually is oriented x3. He is not agitated. Constitutional: Initial Vital Signs Temperature (C) 36.4 C 11/13/17 15:59 Heart Rate 67 11/13/17 15:59 Respiratory Rate 12 11/13/17 15:59 Blood Pressure 103/65 11/13/17 15:59 O2 Sat (%) 97 11/13/17 15:59 O2 Delivery Mode Room Air Allergies/Adverse Reactions: contrast dye Allergy (Uncoded 11/13/17 16:11) ISOVUE-300 Allergy (Uncoded 08/04/17 02:26) Home Medications: Medication Instructions Recorded Dilantin 03/19/17 Clotrimazole 1% [Lotrimin 1%] 30 gm TP BID #1 cream 08/04/17 Triamcinolone 0.025% 1 nura TP BID #1 crtube 08/04/17 [Triamcinolone 0.025% cream (*)] Vits A and D/White Pet/Lanolin [A 113 gm TP BID #1 oint...g. 08/04/17 and D Ointment] Medical Decision Making Procedures: IV normal saline, monitor ED Course/Re-evaluation: At 5:35 p.m. Patient is ambulatory Patient and I discussed laboratory evaluation, treatment plan including criteria for return importance of follow-up and further evaluation. He [facility] Differential Diagnosis: I considered polysubstance abuse, alcohol intoxication, electrolyte abnormalities - Data Points Laboratory Results: Laboratory Results 11/13/17 15:59 11/13/17 15:59 11/13/17 11/13/17 15:59 15:59 WBC 4.93 10^3/uL 10^3/uL (3.80-9.50) RBC 4.23 10^6/uL L 10^6/uL (4.40-6.38) Hgb 14.4 g/dL g/dL (13.7-17.5) Hct 42.5 % % (40.0-51.0) MCV 100.5 fL H fL (81.5-99.8) MCH 34.0 pg pg (27.9-34.1) MCHC 33.9 g/dL g/dL (32.4-36.7) RDW 12.8 % % (11.5-15.2) Plt Count 154 10^3/uL 10^3/uL (150-400) MPV 9.0 fL fL (8.7-11.7) Neut % (Auto) 40.0 % % (39.3-74.2) Lymph % (Auto) 37.1 % % (15.0-45.0) Towner % (Auto) 16.8 % H % (4.5-13.0) Eos % (Auto) 4.9 % % (0.6-7.6) Baso % (Auto) 1.0 % % (0.3-1.7) Nucleat RBC Rel Count 0.0 % % (0.0-0.2) Absolute Neuts (auto) 1.97 10^3/uL 10^3/uL (1.70-6.50) Absolute Lymphs (auto) 1.83 10^3/uL 10^3/uL (1.00-3.00) Absolute Monos (auto) 0.83 10^3/uL H 10^3/uL (0.30-0.80) Absolute Eos (auto) 0.24 10^3/uL 10^3/uL (0.03-0.40) Absolute Basos (auto) 0.05 10^3/uL 10^3/uL (0.02-0.10) Absolute Nucleated RBC 0.00 10^3/uL 10^3/uL (0-0.01) Immature Gran % 0.2 % % (0.0-1.1) Immature Gran # 0.01 10^3/uL 10^3/uL (0.00-0.10) Sodium 140 mEq/L mEq/L (135-145) Potassium 4.3 mEq/L mEq/L (3.5-5.2) Chloride 100 mEq/L mEq/L (97-110) Carbon Dioxide 25 mEq/l mEq/l (22-31) Anion Gap 15 mEq/L mEq/L (8-16) BUN 4 mg/dL L mg/dL (7-23) Creatinine 0.7 mg/dL mg/dL (0.7-1.3) Estimated GFR > 60 Glucose 79 mg/dL mg/dL (70-100) Calcium 8.9 mg/dL mg/dL (8.5-10.4) Ethyl Alcohol 383 mg/dL H mg/dL (0-10) Departure - Departure Disposition: Home, Routine, Self-Care Clinical Impression: Alcohol intoxication Qualifiers: Complication of substance-induced condition: uncomplicated Qualified Code(s): F10.920 - Alcohol use, unspecified with intoxication, uncomplicated Condition: Good Instructions: Chlordiazepoxide/Clidinium (By mouth), Alcohol Intoxication (ED) Additional Instructions: Do not drink anymore alcohol tonight. No more IV drug use please. Return for worsening symptoms. Referrals: Patient,NotPresent [Unknown] - As per Instructions [facility] [Outside] - As per Instructions
[2017-11-13 16:13] VITALS: BP 103/65
[2017-11-13 16:18] LABS: PLATELET COUNT 154 10^3/uL (150-400)
[2017-11-13] MEDS ORDERED: CHLORDIAZEPOXIDE 25MG PREPK#6 BTL TAKEHOME ONE (17:30)
== END 2017-11-13 18:39 | disposition home or self-care (01) ==
LOC: EDUNIT#
DX: F10.920 Alcohol use, unspecified with intoxication, uncomplicated (principal); I10 Essential (primary) hypertension; F17.200 Nicotine dependence, unspecified, uncomplicated
CPT/HCPCS: G0480

== ENCOUNTER 2017-11-22 00:26 | Emergency (ER) | payer OTHER, MEDICAID ==
--- NOTE | 2017-11-22 01:05 | EDPHY ---
General Time Seen by Provider: 11/22/17 00:55 Narrative: CHIEF COMPLAINT: Alcohol withdrawal, chest pain HISTORY OF PRESENT ILLNESS: Patient presents from the [facility] with complaints of alcohol withdrawal and chest pain. Chest pain started somewhere between 4 and 6 hr ago. He describes it more of "my heart was racing" that of a pain. The pain is generalized. It is worse with palpation of the chest and with exertion. Does not radiate. Difficult for him to describe the pain further. He admits to daily alcohol use and dependency, heavy ingestion. Last intake of alcohol was earlier this evening. He also admits to chronic cocaine use, last use 1 day ago. No shortness of breath. No fever. He initially presented to the [facility], but they sent him to our facility for workup for the chest pain and for Librium taper prescription. No other associated complaints or modifying factors. REVIEW OF SYSTEMS: Ten systems reviewed and are negative unless otherwise noted in the HPI PCP: Dr. Pandya SPECIALISTS: None PAST MEDICAL HISTORY: Hypertension, ETOH dependency, seizure disorder, bipolar, depression, eczema PAST SURGICAL HISTORY: Denies any surgical history SOCIAL HISTORY: Smokes cigarettes daily. The daily alcohol ingestion of 8-10 40oz mi liquor beverages and occasional pt of whiskey. Admits to occasional cocaine and marijuana use. Also took unknown substances this morning. FAMILY HISTORY: Noncontributory EXAMINATION General Appearance: Alert, no distress, Head: normocephalic, atraumatic Eyes: Pupils equal and round, no conjunctival pallor or injection ENT, Mouth: Mucous membranes moist Neck: Normal inspection, supple, non-tender Respiratory: Lungs are clear to auscultation well-developed and well- nourished. No wheezing, rhonchi or crackles. Cardiovascular: Regular rate and rhythm. No murmur. Good signs of perfusion distally. Symmetric radial pulses 2+. Gastrointestinal: Abdomen is soft and nontender Back: non-tender, no bony abnormalities Neurological: GCS 15. A&O, nonfocal, normal gait. No tremor. No pronator drift. Normal mentation. Skin: Warm and dry, no rash Extremities: Nontender, no pedal edema Psychiatric: Mood and affect normal DIFFERENTIAL DIAGNOSES: Including but not limited to ACS, palpitations, substance abuse, alcohol withdrawal, dissection, PE, pneumonia MDM: 1:05 a.m. Palpitations and chest pain that is difficult for the patient to describe and is partly reproducible on examination with palpation. His lungs are clear. Vital signs are within normal limits with no tachycardia, no tachypnea, no hypoxemia and normal blood pressure. I have ordered EKG and chest x-ray. I have discussed with Dr. Marc. I have ordered Librium 1st dose here. He does not exhibit any signs of delirium tremens. 1:35 a.m. I have reviewed the chest x-ray, without the aid of the radiologist. I do not appreciate any acute findings. This is compared to previous chest x-ray. EKG has been reviewed and interpreted by Dr. Marc. No ischemia acute findings. I have re-evaluated him. He was sleeping when I enter the room but woke easily. I do feel the patient stable for discharge to the [facility] [place] with Librium taper. He has strict ED precautions to return here if his pain becomes exertional or does not improve with his treatment for alcohol withdrawal. He voices understanding of this and we will provide transportation to the [facility] for detox therapy. EKG interpretation: Dr. Marc NSR, rate 72 bpm. No ectopy. no ischemia SUPERVISION: Patient was independently examined, but I discussed the case with my secondary supervising physician Dr. Marc - History Smoking Status: Heavy smoker - Objective Vital Signs: Initial Vital Signs Temperature (C) 97.5 F 11/22/17 00:30 Heart Rate 96 11/22/17 00:30 Respiratory Rate 20 11/22/17 00:30 Blood Pressure 123/79 H 11/22/17 00:30 O2 Sat (%) 90 L 11/22/17 00:30 O2 Delivery Mode Room Air Allergies/Adverse Reactions: Milk Containing Products [dairy] Allergy (Verified 11/22/17 00:29) contrast dye Allergy (Uncoded 11/13/17 16:11) ISOVUE-300 Allergy (Uncoded 08/04/17 02:26) Home Medications: Medication Instructions Recorded Romi 03/19/17 Departure - Departure Disposition: Home, Routine, Self-Care Clinical Impression: Alcohol dependence Qualifiers: Substance use status: uncomplicated Qualified Code(s): F10.20 - Alcohol dependence, uncomplicated Chest pain Qualifiers: Chest pain type: unspecified Qualified Code(s): R07.9 - Chest pain, unspecified Condition: Good Instructions: Chlordiazepoxide (By mouth), Chest Pain (ED), Abuse of Alcohol ( ED), Polysubstance Abuse (ED) Additional Instructions: 1. Recommend cessation of substance abuse 2. We have provided a Librium taper for you to be given at the arc under the supervision 3. Follow up with primary care physician to discuss proper alcohol cessation Under the supervision 4. ED precautions as discussed Referrals: NONE *PRIMARY CARE P,. [Primary Care Provider] - As per Instructions [facility] [Outside] - As per Instructions
[2017-11-22] MEDS ORDERED: CHLORDIAZEPOXIDE 25MG PREPK#6 BTL TAKEHOME ONE (01:06)
--- NOTE | 2017-11-22 01:16 | CPEKG ---
Heart Rate: 72 RR Interval: 833 P-R Interval: 156 QRSD Interval: 78 QT Interval: 388 QTC Interval: 425 P Tracy: 46 QRS Tracy: 19 T Wave Tracy: 20 EKG Severity - NORMAL ECG - EKG Impression: SINUS RHYTHM Electronically Signed By: Jonah Marc 22-Nov-2017 02:13:00
[2017-11-22 03:24] VITALS: BP 120/84
== END 2017-11-22 03:24 | disposition home or self-care (01) ==
DX: R07.9 Chest pain, unspecified (principal); F10.20 Alcohol dependence, uncomplicated; I10 Essential (primary) hypertension; F17.210 Nicotine dependence, cigarettes, uncomplicated

== ENCOUNTER 2018-01-23 16:00 | Emergency (ER) | payer OTHER, MEDICAID ==
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
[2018-01-23] MEDS ORDERED: FOSPHENYTOIN IV ONE (16:38)
[2018-01-23] MEDS ORDERED: NS IV ONE (16:38)
[2018-01-23 18:35] VITALS: BP 105/76
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
== END 2018-01-23 18:35 | disposition home or self-care (01) ==
LOC: EDUNIT#
DX: F10.20 Alcohol dependence, uncomplicated (principal); G40.909 Epilepsy, unspecified, not intractable, without status epilepticus; I10 Essential (primary) hypertension; F17.200 Nicotine dependence, unspecified, uncomplicated; Z91.14 Patient's other noncompliance with medication regimen
CPT/HCPCS: 96365; 99284; Q2009

== ENCOUNTER 2018-01-27 01:24 | Emergency (ER) | payer OTHER, MEDICAID ==
[2018-01-27] MEDS ORDERED: IBUPROFEN 800 MG TAB PO ONE (02:52)
[2018-01-28 05:02] VITALS: BP 113/74
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
== END 2018-01-27 03:55 | disposition home or self-care (01) ==
DX: S20.211A Contusion of right front wall of thorax, initial encounter (principal); I10 Essential (primary) hypertension; F17.200 Nicotine dependence, unspecified, uncomplicated; V18.4XXA Pedal cycle driver injured in noncollision transport accident in traffic accident, initial encounter; Y92.410 Unspecified street and highway as the place of occurrence of the external cause; Y99.8 Other external cause status; Y93.55 Activity, bike riding

== ENCOUNTER 2018-04-06 | Emergency (ER) | payer OTHER, MEDICAID | END 2018-04-06 22:23 | disposition home or self-care (01) | DX: F10.920 Alcohol use, unspecified with intoxication, uncomplicated (principal) ==

== ENCOUNTER 2018-04-11 11:02 | Emergency (ER) | payer OTHER, MEDICAID ==
[2018-04-11] MEDS ORDERED: LORazepam 2 MG/ML INJ IVP ONE (11:39)
--- NOTE | 2018-04-11 12:58 | EDPHY ---
H & P Time Seen by Provider: 04/11/18 11:05 HPI/ROS: CHIEF COMPLAINT: Seizure, head trauma HISTORY OF PRESENT ILLNESS: 48-year-old male presents to the emergency department by ambulance after having a seizure. The patient has a history of alcoholism and has known alcohol withdrawal seizures and known epilepsy. He has been noncompliant with his Dilantin. He states that he has several seizures daily and has for a long time. He does admit to drinking alcohol heavily yesterday. Last drink was sometime last night. He is complaining of a headache. He thinks that he lost consciousness when he had a seizure. He is complaining specifically of right-sided facial and head pain. No neck pain. No chest pain or difficulty breathing. No abdominal pain. No injury to upper or lower extremities. REVIEW OF SYSTEMS: Constitutional: No fever, no chills. Eyes: No double or blurry vision. ENT: No sore throat. Respiratory: No cough, no shortness of breath. Cardiac: No chest pain. Gastrointestinal: No abdominal pain, vomiting or diarrhea. Genitourinary: No dysuria. Musculoskeletal: No neck or back pain. Skin: No rashes. Neurological: headache. Past Medical/Surgical History: Epilepsy, alcoholism, alcohol withdrawal seizures, hypertension, bipolar, eczema Social History: Homeless Smoking Status: Heavy smoker Physical Exam: General Appearance: Alert, no distress. No visible signs of trauma to his head. Smells of alcohol. Eyes: Pupils equal and round. Extraocular motions are all intact. ENT: Mouth: Mucous membranes moist. No dental injury or malocclusion. Respiratory: No wheezing, rhonchi, or rales, lungs are clear to auscultation. Cardiovascular: Regular rate and rhythm. Gastrointestinal: Abdomen is soft and nontender, no masses, no rebound or guarding, bowel sounds normal. Neurological: Alert and oriented x 3, cranial nerves II through XII grossly intact Skin: Warm and dry, no rashes. Musculoskeletal: Nontender to palpate along the cervical, thoracic or lumbar spine. Neck is supple. Extremities: Full range of motion and no peripheral edema. Psychiatric: Patient is oriented X 3, there is no agitation. Constitutional: Initial Vital Signs Temperature (C) 36.7 C 04/11/18 11:02 Heart Rate 76 04/11/18 11:02 Respiratory Rate 16 04/11/18 11:02 Blood Pressure 113/74 04/11/18 11:02 O2 Sat (%) 91 L 04/11/18 11:02 O2 Delivery Mode Room Air O2 (L/minute) 2 Allergies/Adverse Reactions: Milk Containing Products [dairy] Allergy (Verified 04/06/18 20:13) contrast dye Allergy (Uncoded 04/06/18 20:13) ISOVUE-300 Allergy (Uncoded 04/06/18 20:13) Home Medications: Medication Instructions Recorded Dilantin 03/19/17 Medical Decision Making - Diagnostics Imaging: Discussed imaging studies w/ faculty i on call medical assistant Radiologist ED Course/Re-evaluation: 48-year-old male presents after having a seizure. The patient had positive loss of consciousness and is complaining of a headache. As concerned about intracranial bleeding or skull fracture. CT imaging of the head was obtained which revealed nothing acute. Patient received IV normal saline. He also received a mg of Ativan. He received 200 mg of oral Dilantin. He was encouraged to have close follow-up with [facility] and to continue his medications as prescribed. He was also encouraged not drink alcohol in excess. Differential Diagnosis: Seizure including but not limited to electrolyte abnormality, alcohol withdrawal , medication noncompliance, head injury, and breakthrough seizure. Head injury including but not limited to concussion, skull fracture, intraparenchymal contusion, subarachnoid, subdural and epidural hematoma. - Data Points Medications Given: Discontinued Medications Lorazepam (Ativan Injection) 1 mg IVP EDNOW ONE Stop: 04/11/18 11:40 Last Admin: 04/11/18 11:43 Dose: 1 mg Phenytoin Sodium (Dilantin) 200 mg PO EDNOW ONE Stop: 04/11/18 14:47 Last Admin: 04/11/18 15:16 Dose: 200 mg Point of Care Test Results: Chemistry 04/11/18 11:29 POC Sodium 146 mEq/L H mEq/L (135-145) POC Potassium 4.2 mEq/L mEq/L (3.3-5.0) POC Chloride 105 mEq/L mEq/L (97-110) POC BUN 5 mg/dL L mg/dL (7-23) POC Creatinine 1.0 mg/dL mg/dL (0.7-1.3) POC Glucose 86 mg/dL mg/dL (70-100) ISTAT H&H 04/11/18 11:29 POC Hgb 14.6 gm/dL gm/dL (13.7-17.5) POC Hct 43 % % (40-51) Departure - Departure Disposition: Home, Routine, Self-Care Clinical Impression: Seizure Head injury Qualifiers: Encounter type: initial encounter Qualified Code(s): S09.90XA - Unspecified injury of head, initial encounter Condition: Good Instructions: Head Injury (ED), Epilepsy (ED) Additional Instructions: You should take your seizure medication as prescribed. You should not drink alcohol in excess. You should not drive a car until cleared by a neurologist. Referrals: [facility],. [Clinic] - As per Instructions
[2018-04-11] MEDS ORDERED: PHENYTOIN SODIUM EXTENDED 100 MG CAP PO ONE (14:46)
[2018-04-11 14:49] VITALS: BP 116/83
== END 2018-04-11 15:24 | disposition home or self-care (01) ==
LOC: EDUNIT#
DX: R56.9 Unspecified convulsions (principal); S09.90XA Unspecified injury of head, initial encounter; I10 Essential (primary) hypertension; F17.200 Nicotine dependence, unspecified, uncomplicated; Z59.0 Homelessness
CPT/HCPCS: 70450; 96374; 99285; J2060; 82435-PO; 82565-PO; 82947-PO; 84132-PO; 84295-PO; 84520-PO; 85014-PO

== ENCOUNTER 2018-05-09 15:49 | Emergency (ER) | payer OTHER, MEDICAID ==
--- NOTE | 2018-05-09 15:56 | EDPHY ---
H & P Time Seen by Provider: 05/09/18 15:50 HPI/ROS: CHIEF COMPLAINT: Altered mental status, alcohol abuse, heroin abuse HISTORY OF PRESENT ILLNESS: The patient is a 48-year-old male who presents emergency department via EMS. Patient has altered mental status. Per report, the patient has been drinking alcohol. He used heroin early today. He states it was an accident. Patient has a history of epilepsy but he did not report any seizure recently. Patient states"I am as high as a kite." Patient has no other complaints. He has no chest pain or shortness of breath. REVIEW OF SYSTEMS: 10 systems were reveiwed and are negative with the exception of the elements mentioned in the history of present illness. Past Medical/Surgical History: Includes seizure disorder, alcohol withdrawal seizure, alcohol abuse, hypertension, bipolar, eczema Social history: Patient smokes. Patient drinks alcohol regularly. He states he used heroin by accident. Smoking Status: Heavy smoker Physical Exam: Vitals noted GENERAL: No acute distress, alert. HEENT: Mild the small pupils bilaterally. They are minimally reactive. Normal pharynx, no signs of dehydration. NECK: Normal, supple. RESPIRATORY: Clear to auscultation bilaterally, no rales, rhonchi or wheezing. CVS: Regular rate and rhythm, no rubs, murmurs, or gallops. ABDOMEN: Soft, nontender, nondistended, no organomegaly. BACK: Normal to inspection, no CVA tenderness. SKIN: The patient has no significant track contreras. Normal color, no rash, warm , dry. No pallor. EXTREMITIES: No pedal edema, no calf tenderness, no Homans sign or cords, no joint swelling. NEURO/PSYCH: Alert and oriented, normal mood and affect, normal motor sensory exam. No obvious cranial nerve deficit. Constitutional: Initial Vital Signs Temperature (C) 36.4 C 05/09/18 15:49 Heart Rate 86 05/09/18 15:49 Respiratory Rate 16 05/09/18 15:49 Blood Pressure 123/81 H 05/09/18 15:49 O2 Sat (%) 95 05/09/18 15:49 O2 Delivery Mode Room Air O2 (L/minute) 1 Allergies/Adverse Reactions: Milk Containing Products [dairy] Allergy (Verified 05/09/18 15:51) contrast dye Allergy (Uncoded 05/09/18 15:51) ISOVUE-300 Allergy (Uncoded 05/09/18 15:51) Home Medications: Medication Instructions Recorded Dilantin 03/19/17 Medical Decision Making ED Course/Re-evaluation: In the emergency department I discussed possible etiologies with the patient. I answered all his questions. Patient was maintaining his airway and oxygen saturation. I decided not given Narcan at the time of his arrival. On recheck the patient mental status was improving. No new complaints. 2049: Patient is ambulating well. He answers my questions. He has no complaints. Differential Diagnosis: My differential includes but is not limited to heroin abuse, alcohol abuse, closed-head injury, subarachnoid hemorrhage, subdural hematoma, epidural hematoma, electrolyte abnormality, sugar abnormality, assault Departure - Departure Disposition: Home, Routine, Self-Care Clinical Impression: Alcohol abuse, Polysubstance abuse Altered mental status, unspecified Qualifiers: Altered mental status type: unspecified Qualified Code(s): R41.82 - Altered mental status, unspecified Condition: Good Instructions: Narcotic Abuse (ED), Abuse of Alcohol (ED) Referrals: [facility],. [Clinic] - 2-3 days without fail
[2018-05-09 17:54] VITALS: BP 107/66
== END 2018-05-09 20:45 | disposition home or self-care (01) ==
LOC: EDUNIT#
DX: R41.82 Altered mental status, unspecified (principal); F10.10 Alcohol abuse, uncomplicated; F11.10 Opioid abuse, uncomplicated; I10 Essential (primary) hypertension

== ENCOUNTER 2018-06-14 16:11 | Emergency (ER) | payer OTHER, MEDICAID ==
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
[2018-06-14] MEDS ORDERED: CHLORDIAZEPOXIDE 25MG PREPK#6 BTL TAKEHOME ONE (16:55)
[2018-06-14 17:46] VITALS: BP 130/78
== END 2018-06-14 17:46 | disposition home or self-care (01) ==
LOC: EDUNIT#
DX: F10.920 Alcohol use, unspecified with intoxication, uncomplicated (principal); S43.402A Unspecified sprain of left shoulder joint, initial encounter; I10 Essential (primary) hypertension; R56.9 Unspecified convulsions; F31.9 Bipolar disorder, unspecified; F17.200 Nicotine dependence, unspecified, uncomplicated

== ENCOUNTER → 2018-08-27 | Outpatient (CLI) | payer OTHER, MEDICAID | LOC: BMCIMAGING 15:42 | PROVIDERS: ATTEND Nurse Practitioner Adult Health | DX: M41.86 Other forms of scoliosis, lumbar region (principal); M51.36 Other intervertebral disc degeneration, lumbar region ==

== ENCOUNTER 2018-09-23 09:22 | Emergency (ER) | payer OTHER, MEDICAID ==
[2018-09-23] MEDS ORDERED: KETOROLAC 30 MG/1 ML SDV IM ONE (09:41)
--- NOTE | 2018-09-23 09:49 | EDPHY ---
H & P Time Seen by Provider: 09/23/18 09:35 HPI/ROS: HPI Left hip pain. 48-year-old male on foot. He is currently homeless. He is very familiar to our emergency department staff. He has multiple visits to the emergency department related to polysubstance abuse and seizures. He states that he woke up yesterday morning and had tightness involving his left medial and lateral hip extending into the left upper buttock region. He reports that he thinks his hip may be dislocated. He denies any history of trauma. He reports that he last had a seizure on Friday evening. He denies any loss of sensation or weakness in his left lower extremity. No history of fever. No history of malignancy. No bowel or bladder incontinence. No lower back pain. ROS: Constitutional: No fever, no chills. No weakness. Eyes: No discharge. No changes in vision. ENT: No sore throat. No nasal congestion or rhinorrhea. Respiratory: No cough. No shortness of breath. Cardiac: No chest pain, no palpitations. Gastrointestinal: No abdominal pain, no vomiting, no diarrhea. Genitourinary: No hematuria. No dysuria or increased frequency with urination. Musculoskeletal: No back pain. No neck pain. As above. Skin: No rashes. Neurological: No headache. No focal weakness or altered sensation. Past medical history: Bipolar, depression, alcohol abuse, alcohol withdrawal seizures, seizure disorder, heroin abuse, hypertension, eczema, homeless. Social history: Smoker. Polysubstance abuse as above. Homeless. Here by himself. Physical Exam: General Appearance: Alert, he is not in distress. This patient is responding to questions appropriately and in full sentences. This patient appears well- hydrated and well-nourished. Eyes: Pupils equal and round no pallor or injection. No lid edema, erythema or injection. Left hip exam: On gross inspection of the left hip medial lateral and posterior aspects, no soft tissue changes. No edema, erythema, ecchymosis or evidence of traumatic injury noted. The left hip appears to range freely in all planes of motion and without significant pain. There is no pain elicited by axial compression of the left hip. The left lower extremity is neurovascularly intact. Gastrointestinal: Abdomen is soft and nontender, no masses, bowel sounds normal. No focal tenderness at McBurney's point. No Hernandez sign. Neurological: Motor sensory function is grossly intact. Cranial nerves are normal. Gait is normal. Skin: Warm and dry, no rashes. Musculoskeletal: He has no midline thoracic, lumbar, sacral tenderness on palpation. No flank tenderness or sacroiliac tenderness on palpation bilaterally. Extremities are symmetrical. All joints range without pain or impingement. Psychiatric: No agitation. No depression. Database: EKG: Imaging: Left hip x-ray series: Degenerative, arthritic changes noted. Negative for fracture, subluxation, dislocation. Interpreted by me. Procedures: Emergency department course: Triage vital signs reviewed. He is mildly hypertensive. Vital signs are otherwise normal. He is afebrile. Patient's medical records reviewed. I am concerned about his history of polysubstance abuse. He has a normal creatinine from August of this year. I will give him intramuscular Toradol for his pain but told him I would not give him any narcotic pain medications. Left hip x- ray series to be obtained. 10:00 a.m., patient re-evaluated, results of left hip x-ray series discussed with him. His physical exam is reassuring. I feel that significant traumatic injury is unlikely. Neurovascular injury is unlikely. His pain presentation is consistent with muscle cramping or an arthritic condition, likely secondary to favoring his right leg which he states he does because of his sciatica. He reports to me that he usually ambulates with a cane to favor his right lower extremity but lost his cane recently. I feel he is safe for discharge at this time. He feels comfortable with this. Follow-up and return to emergency department precautions were reviewed with him. All of his questions were answered. He was discharged from the emergency department in good condition. Differential Diagnosis: The differential diagnosis on this patient includes but is not limited to left hip muscle spasm, arthritis of the left hip. Septic arthritis of the left hip, fracture/subluxation/dislocation of the left hip, acute spinal injury unlikely. This represents a partial list of diagnoses considered. These considerations are based on history, physical exam, past history, reassessment and diagnostic testing. Smoking Status: Heavy smoker Constitutional: Initial Vital Signs Temperature (C) 36.8 C 09/23/18 09:42 Heart Rate 73 09/23/18 09:42 Respiratory Rate 20 09/23/18 09:42 Blood Pressure 147/88 H 09/23/18 09:42 O2 Sat (%) 100 09/23/18 09:42 O2 Delivery Mode Room Air Allergies/Adverse Reactions: Milk Containing Products [dairy] Allergy (Verified 09/23/18 09:38) contrast dye Allergy (Uncoded 06/14/18 16:18) ISOVUE-300 Allergy (Uncoded 06/14/18 16:18) Home Medications: Medication Instructions Recorded Dilantin 03/19/17 CeleBREX 09/23/18 Lexapro 09/23/18 Seroquel 09/23/18 Medical Decision Making - Diagnostics Imaging Results: Imaging Impressions Hip X-Ray 09/23/18 09:36 Impression: 1. No acute osseous findings. 2. Stable degenerative change and right hip dysplasia. - Data Points Medications Given: Discontinued Medications Ketorolac Tromethamine (Toradol) 30 mg IM EDNOW ONE Stop: 09/23/18 09:42 Last Admin: 09/23/18 09:52 Dose: 30 mg Departure - Departure Disposition: Home, Routine, Self-Care Clinical Impression: Left hip pain Condition: Good Instructions: Hip Pain (ED) Additional Instructions: Read and follow provided instructions. Follow-up with your primary care physician in 1-2 days for re-evaluation. Continue your sella breakfast as prescribed. Return to the emergency department for worsening pain, fever, swelling, discoloration or other serious concerns. Referrals: Diamond Zapata MD [Primary Care Provider] - As per Instructions
[2018-09-23 10:13] VITALS: BP 147/68
== END 2018-09-23 10:12 | disposition home or self-care (01) ==
LOC: CED 09:22
DX: M25.552 Pain in left hip (principal); Z59.0 Homelessness
CPT/HCPCS: 73502; 96372; 99284; J1885

== ENCOUNTER 2019-01-21 21:28 | Emergency (ER) | payer OTHER, MEDICAID | END 2019-01-22 05:44 | disposition home or self-care (01) ==

== ENCOUNTER 2019-01-28 17:40 | Emergency (ER) | payer OTHER, MEDICAID | END 2019-01-28 19:50 | disposition home or self-care (01) ==

== ENCOUNTER 2019-01-29 23:01 | Emergency (ER) | payer OTHER, MEDICAID | END 2019-01-30 01:53 | disposition home or self-care (01) ==

== ENCOUNTER 2019-02-02 12:47 | Emergency (ER) | payer OTHER, MEDICAID | END 2019-02-02 20:23 | disposition home or self-care (01) ==